=== PATIENT | male | born 1965 | race Caucasian/White ===

== ENCOUNTER 2016-11-19 16:28 | Inpatient (IN) | payer MEDICARE, MEDICAID ==
--- NOTE | 2016-11-19 16:54 | EDPRACDOC ---
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 Mode Of Arrival: Ambulance Home Medications: Home Medications Acetaminophen [Mapap] 650 mg PO BID 11/16/16 Benztropine Mesylate 0.5 mg PO TID 11/16/16 Cholecalciferol (Vitamin D3) [Vitamin D3] 1,000 unit PO DAILY 11/16/16 Escitalopram Oxalate [Lexapro] 10 mg PO .QPM 11/16/16 Hypromellose [Artificial Tears] 1 drop OU QID 11/16/16 Ibuprofen Tablet [Motrin] 800 mg PO Q8H PRN 11/16/16 Latanoprost 1 drop OU QHS 11/16/16 Levothyroxine [Synthroid, Levoxyl] 25 mcg PO DAILY 11/16/16 Lorazepam [Ativan] 0.5 mg PO Q8H PRN 11/16/16 Multivits,Ca,Minerals/Iron/FA [Thera-Tabs M Caplet] 1 tab PO DAILY 11/16/16 Olanzapine [Zyprexa] 5 mg PO BID 11/16/16 Pantoprazole Sodium [Protonix] 40 mg PO DAILY 11/16/16 Sodium Fluoride [Phos-Flur] 15 ml MM DAILY 11/16/16 Albuterol Sulfate MDI [Proventil HFA] 2 puff PO Q4H PRN 11/19/16 Ammonium Lactate [Lac-Hydrin] 2 gm TOP BID 11/19/16 Azithromycin 250 mg PO .DAILY X 4D 11/19/16 Biotene Toothpaste 1 applic PO BID 11/19/16 [place] Thick 1 sam PO .ADD TO ALL LIQUIDS 11/19/16 Allergies/Adverse Reactions: Allergies Allergy/AdvReac Type Severity Reaction Status Date / Time No Known Allergies Allergy Unverified 11/16/16 20:54 - History of Present Illness HPI: SOB FOR 2-3 DAYS, DIAGNOSED WITH PNA IN ER 11/16, ON ABX-AZITHROMYCIN. CHEST PAIN 10. VERY ANXIOUS. CONCERNED ABOUT GOING HOME FEELING THE WAY HE DOES. Shortness of Breath: Moderate ED Past Medical History - Patient Medical History Psychological History: Denies: Depression - Social Medical History Smoking Status: Never smoker EDM Review of Systems - Review of Systems ROS Negative Except as Marked: Yes All systems reviewed and were negative except as marked Eyes: No Symptoms Reported Ears: No Symptoms Reported Throat: No Symptoms Reported - Physical Exam Constitutional: Alert (Awake) Oriented to: Time, Person, Place Last recorded Vital Signs: Oxygen Pulse Oxygen Saturation O2 Device Oxygen Flow Rate Fraction of Inspired Oxygen ( FIO2) - HEENT Head: Normal ( normocephalic) Eye Exam: Normal (PERRL, EOMI, Sclera white) Oropharynx: Normal (Pharynx:Moist without exudate,Gums-no swelling) Nose: No Symptoms Reported (septum midline) Neck: Normal (FROM, trachea at midline) - Respiratory/Cardiovascular Respiratory: Tachypnea Cardiovascular: Normal - GI Auscultation: Normal (NABS) Palpation: Normal (Soft,No rebound or guarding, non distended) Tenderness: Non tender Merino's Sign: Negative - Musculoskeletal Back: Normal (Non-Tender) Extremities: Normal (Normal tone, Pulses 2+ No cyanosis or edema, FROM) - Integumentary Skin: Normal, Warm, Dry Lymphatics: Normal (no adenopathy) - Neurologic Memory Impaired: Normal Motor Function: Normal (Normal tone, Pulses 2+ No cyanosis or edema, FROM) Cranial Nerve: Normal (CN II-X11 intact sensation, strength 5/5) Cerebellar: Normal Mood Description: Normal Perception: Normal ED SOB MDM - Results Result Diagrams: 11/19/16 17:00 11/19/16 17:00 - EKG EKG #1 EKG Time: 22:16 -: Yes EKG interpreted by me Rate: bpm: 70 [place]: Normal Rhythm: NSR Block: None Hypertrophy: None ST: Normal Comments: NORMAL EKG - Departure Yes I personally saw and evaluated the patient. Disposition: Admit IP To This Hospital Condition: Stable Final Diagnosis: Bilateral pneumonia Qualifiers: Pneumonia type: due to unspecified organism Lung location: lower lobe of lung Qualified Code(s): J18.9 - Pneumonia, unspecified organism Decision to Admit Time: 22:07 Decision to admit date: 11/19/16 Decision to admit: from ED - Physician Consulted Hospitalist Time Called: 22:07 Provider Called: Nael Fan Time Emergency Room Tech Returned Call: 22:08
--- NOTE | 2016-11-19 17:07 | DIRPT ---
CLINICAL DATA: Dyspnea and cough with substernal chest pain/ pressure 3 days. EXAM: CHEST 2 VIEW COMPARISON: 11/16/2016 as well as chest CT 11/16/2016 FINDINGS: Lungs are somewhat hypoinflated demonstrate worsening patchy bilateral perihilar and bibasilar opacification which may be due to edema versus infection. Small bilateral pleural effusions. Mild stable cardiomegaly. Remainder of the exam is unchanged. IMPRESSION: Worsening bilateral patchy perihilar and bibasilar or airspace opacification which may be due to infection or edema. Small bilateral pleural effusions. Electronically Signed By: Leonel Go M.D. On: 11/19/2016 17:04
[2016-11-19 18:08] LABS: AUTOMATED BASOPHIL 0.8 % (0-2); AUTOMATED EOSINOPHIL 1.9 % (0-5); AUTOMATED LYMPH 18.2 % (17-44); AUTOMATED MONOCYTE 5.9 % (3-10); AUTOMATED NEUTROPHIL 73.2 % (45-76); MPV 8.6 fL (7.4-10.4)
[2016-11-19 18:20] LABS: BLOOD UREA NITROGEN 16 MG/DL (9-20); CALC CORRECTED 8.7 MG/DL (8.4-10.2); CALCIUM 8.3 MG/DL (8.4-10.2); CALCULATED OSMOLALITY 283 MOs/Kg (270-290); CHLORIDE 107 mEq/L (98-107); GLUCOSE 108 MG/DL (70-99); SODIUM LEVEL 146 mEq/L (137-146); TOTAL PROTEIN 6.4 G/DL (6.3-8.2)
[2016-11-19] MEDS ORDERED: ALBUTEROL 0.083% 3 ML NEB NEB ONE (21:56)
[2016-11-19] MEDS ORDERED: [UNRECOGNIZED DRUG - OTHER] PO SCH (22:00)
[2016-11-19] MEDS ORDERED: [UNRECOGNIZED DRUG - OTHER] PO SCH (22:00)
[2016-11-19] MEDS ORDERED: AMMONIUM LACTATE TOP SCH (22:00)
[2016-11-19] MEDS ORDERED: BENZTROPINE MESYLATE 0.5 MG PO SCH (22:00)
[2016-11-19] MEDS ORDERED: HYPROMELLOSE OU SCH (22:00)
[2016-11-19 22:12] LABS: ALLEN'S TEST PASS; BEb 1.4 (+/- 2)
[2016-11-19 22:13] LABS: ABG Draw Site Right Radial
[2016-11-19] MEDS: LORAZEPAM 0.5 MG TAB PO PRN (22:27)
[2016-11-19] MEDS ORDERED: NS 1,000 ML IV ONE (22:35)
[2016-11-19] MEDS ORDERED: Levofloxacin 750 mg/150 ml D5W 750 MG/150 ML RTU IV ONE (22:35)
--- NOTE | 2016-11-19 22:53 | HISTPHYS ---
- Chief Complaint shortness of breath, on azithromycin - History of Present Illness PRIMARY CARE PROVIDER: Dr. Aceves HPI: The patient is a 51 yo man who presents with pneumonia diagnosed several days ago who has had more shortness of breath, worse today. Chest pain also, started a few days ago, associated with anxiety. He presented to the emergency department 3 days ago, was diagnosed with probable pneumonia, and was discharged on PO azithromycin. Regarding the shortness of breath and chest pain : Onset: Shortness of breath started about 4 days ago. Chest pain started a few days ago. Duration: Shortness of breath constantly present and progressively worsening. Location: Substernal. Radiation: none. Character: 01/29. Like a bee sting. Alleviated by: Nothing. Exacerbated by: Nothing. Associated Symptoms: Coughing productive of white sputum. Wheezing. Mild chills but no fever. Chest pain happens when he gets an anxiety attack. Palpitations with anxiety. Chronic lower extremity swelling is unchanged. Treatments: none at home except usual medications. 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 SPINE TUMOR: 07/2016: Extensive tumor extending from the conus medullaris at T12-L1, filling the spinal canal to the L5 level. Solid enhancing tumor predominates, with cystic change from T12-L1 to L1-L2. 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 Denies: Depression Tumor on spine found 07/2016. Followed by Dr. Willoughby. Referred to surgeon for evaluation. 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 11/16/16 CRR Current Medication List: Reviewed Home Medications Acetaminophen [Mapap] 650 mg PO BID 11/16/16 Benztropine Mesylate 0.5 mg PO TID 11/16/16 Cholecalciferol (Vitamin D3) [Vitamin D3] 1,000 unit PO DAILY 11/16/16 Escitalopram Oxalate [Lexapro] 10 mg PO .QPM 11/16/16 Hypromellose [Artificial Tears] 1 drop OU QID 11/16/16 Ibuprofen Tablet [Motrin] 800 mg PO Q8H PRN 11/16/16 Latanoprost 1 drop OU QHS 11/16/16 Levothyroxine [Synthroid, Levoxyl] 25 mcg PO DAILY 11/16/16 Lorazepam [Ativan] 0.5 mg PO Q8H PRN 11/16/16 Multivits,Ca,Minerals/Iron/FA [Thera-Tabs M Caplet] 1 tab PO DAILY 11/16/16 Olanzapine [Zyprexa] 5 mg PO BID 11/16/16 Pantoprazole Sodium [Protonix] 40 mg PO DAILY 11/16/16 Sodium Fluoride [Phos-Flur] 15 ml MM DAILY 11/16/16 Albuterol Sulfate MDI [Proventil HFA] 2 puff PO Q4H PRN 11/19/16 Ammonium Lactate [Lac-Hydrin] 2 gm TOP BID 11/19/16 Azithromycin 250 mg PO .DAILY X 4D 11/19/16 Biotene Toothpaste 1 applic PO BID 11/19/16 [place] Thick 1 sam PO .ADD TO ALL LIQUIDS 11/19/16 - Family History Reports: Other (Patient does not know) - Social History Lives: [place] [facility] since [facility]) Smoking Status: Never smoker Social History: Denies: Alcohol Use, Substance Use Disorder Mother's name is Desi Torres, . - Review of Systems GENERAL: Mild chills but no fever. No diaphoresis. Positive for fatigue/ malaise. HEENT: No ear pain or discharge. No nasal discharge or bleeding. No throat pain or swelling. No eye pain or eye redness. RESPIRATORY: Coughing productive of white sputum. Wheezing and shortness of breath. CARDIOVASCULAR: Chest pain happens when he gets an anxiety attack. Palpitations with anxiety. GI: No abdominal pain, nausea, vomiting, diarrhea, constipation, or bloody stool. NEUROLOGICAL: No headache or focal weakness. INTEGUMENT: no rashes, itching, or lesions. LYMPHATIC SYSTEM: no lymph node swelling or pain. MUSCULOSKELETAL: no new pain or joint swelling. GENITOURINARY: No dysuria or hematuria. ENDOCRINE: No polyuria or polydipsia. HEME: No chronic anemia, bleeding, or easy bruising. - Physical Exam Vital Signs: Initial Vitals Temperature 98.5 F 11/19/16 16:39 Pulse Rate 76 11/19/16 16:39 Respiratory Rate 22 11/19/16 16:39 Blood Pressure 135/63 11/19/16 16:39 Pulse Oxygen Saturation 95 11/19/16 16:39 Weight: 78.4 kg Height: 5' BMI: 33.8 - Other Exam Other Exam Findings: GENERAL: Ill-appearing, well nourished, in acute distress. HEENT: Normocephalic, atraumatic; pupils equal and round. Nares patent, without discharge or bleeding. No oropharyngeal lesions or erythema. Mucous membranes are dry. NECK: is supple, no masses, trachea midline. RESPIRATORY: Clear to auscultation bilaterally. Chest wall movements are symmetric. No use of accessory muscles to breathe. Bilateral wheezing. Bilateral rhonchi. No rales. CARDIOVASCULAR: Normal S1, S2. No murmur. No rubs, or gallops. PMI non- displaced. Carotids: no carotid bruits. No bradycardia or tachycardia. DP pulses 2+ bilaterally. GI: soft, non-distended, normal active bowel sounds. No hepatosplenomegaly. Minimal generalized abdominal tenderness. INTEGUMENT: Clean, dry, and intact. No rashes. MUSCULOSKELETAL: No cyanosis. No clubbing. Edema 1+ lower extremities bilaterally. NEUROLOGICAL: Cranial nerves 2-12 grossly intact. Motor 5/5 throughout. Reflexes : 2+ bilaterally. Babinski: toes downgoing bilaterally. Intact Finger to nose. Sensory grossly intact to light touch. Intact rapid alternating movements bilaterally. No pronator drift. PSYCHIATRIC: Fully oriented. Normal and appropriate affect. LYMPHATIC: No cervical lymphadenopathy. No supraclavicular lymphadenopathy. - Lab Results Laboratory Tests 11/19/16 11/19/16 11/19/16 17:00 17:00 17:00 WBC 8.9 RBC 3.24 L Hgb 10.0 L Hct 29.3 L MCV 91 MCH 30.8 MCHC 33.9 RDW 16.1 H Plt Count 254 MPV 8.6 Neut % (Auto) 73.2 Lymph % (Auto) 18.2 [place] % (Auto) 5.9 Eos % (Auto) 1.9 Baso % (Auto) 0.8 Absolute Neuts (auto) 6.50 Absolute Lymphs (auto) 1.60 Puncture Site pH pCO2 pO2 HCO3 Total CO2 Base Excess FiO2 % Specimen Drawn By Sodium 146 Potassium 3.5 Chloride 107 Carbon Dioxide 27 Anion Gap 16 BUN 16 Creatinine 0.80 Estimated GFR (MDRD) > 60 Glucose 108 H Calculated Osmolality 283 Calcium 8.3 L Corrected Calcium 8.7 Total Bilirubin 0.5 AST 23 ALT 42 Alkaline Phosphatase 78 Troponin I < 0.01 [id number] Pept Total Protein 6.4 Albumin 3.6 11/19/16 11/19/16 17:00 22:05 WBC RBC Hgb Hct MCV MCH MCHC RDW Plt Count MPV Neut % (Auto) Lymph % (Auto) [place] % (Auto) Eos % (Auto) Baso % (Auto) Absolute Neuts (auto) Absolute Lymphs (auto) Puncture Site Right radial pH 7.460 H pCO2 35.0 pO2 73.0 L HCO3 24.9 Total CO2 26.0 Base Excess 1.4 FiO2 % .21 Specimen Drawn By Robcha Sodium Potassium Chloride Carbon Dioxide Anion Gap BUN Creatinine Estimated GFR (MDRD) Glucose Calculated Osmolality Calcium Corrected Calcium Total Bilirubin AST ALT Alkaline Phosphatase Troponin I Obt-T-Qwhywyfkgce Pept 248 Total Protein Albumin - Diagnostic Findings EK beats per minute. Normal sinus rhythm. Reviewed EKG personally. Chest x-ray, viewed personally: EXAM: CHEST 2 VIEW COMPARISON: 11/16/2016 as well as chest CT 11/16/2016 FINDINGS: Lungs are somewhat hypoinflated demonstrate worsening patchy bilateral perihilar and bibasilar opacification which may be due to edema versus infection. Small bilateral pleural effusions. Mild stable cardiomegaly. Remainder of the exam is unchanged. IMPRESSION: Worsening bilateral patchy perihilar and bibasilar or airspace opacification which may be due to infection or edema. Small bilateral pleural effusions. PREVIOUS IMAGING: CTA CHEST, 11/16/16: EXAM: CT ANGIOGRAPHY CHEST WITH CONTRAST TECHNIQUE: Multidetector CT imaging of the chest was performed using the standard protocol during bolus administration of intravenous contrast. Multiplanar CT image reconstructions and MIPs were obtained to evaluate the vascular anatomy. CONTRAST: 90 cc Isovue 370 COMPARISON: Chest radiograph dated 11/16/2016 FINDINGS: There are small bilateral pleural effusions with associated partial compressive atelectasis of the lower lobes. There is diffuse interstitial prominence with diffuse ground-glass airspace opacities most compatible with congestive changes or edema. Superimposed pneumonia is not excluded. Amount of fluid is noted within the fissures bilaterally. There is a 1.2 x 1.6 cm density along the right major fissure likely with a focal fluid collection. Underlying mass is less likely but not excluded. Clinical correlation and follow-up recommended. The central airways are patent. Top-normal cardiac size. No pericardial effusion. Top-normal bilateral hilar lymph nodes. The thoracic aorta appears unremarkable. Evaluation of the pulmonary arteries is limited due to suboptimal opacification of the peripheral branches. No central pulmonary artery embolus identified. The visualized esophagus and thyroid gland appear grossly unremarkable. There is no axillary adenopathy. The chest wall soft tissues appear grossly unremarkable. The osseous structures are intact. There is retrograde flow of contrast from the right atrium into the IVC compatible with a degree of right heart failure. Correlation with echocardiogram recommended. The visualized upper abdomen is otherwise unremarkable. Review of the MIP images confirms the above findings. IMPRESSION: No CT evidence of central pulmonary embolism. Small bilateral pleural effusions with findings could congestive changes. Superimposed pneumonia is not excluded. Clinical correlation and follow-up recommended. MRI C-SPINE and T-SPINE, 08/25/16: Exam(s): [id number] MRI/MRI CERVICAL SPINE W/O CM CLINICAL DATA: Ependymoma. EXAM: MRI CERVICAL SPINE WITHOUT CONTRAST; MRI THORACIC SPINE WITHOUT CONTRAST TECHNIQUE: Multiplanar and multiecho pulse sequences of the cervical and thoracic spine were obtained without intravenous contrast. COMPARISON: None FINDINGS: Postcontrast imaging could not be obtained. The patient presented for post infused imaging 4 times, each time declining injection. Cervical spine: No marrow signal abnormality suggestive of fracture, infection, or neoplasm. Congenital C2-3 non segmentation. Normal cord signal. Degenerative changes superimposed on congenitally stenotic spinal canal: C2-3: Non segmentation without superimposed degenerative change. No impingement. C3-4: Congenital canal stenosis with small posterior disc osteophyte complex and ligamentous thickening. Spinal canal stenosis is moderate, with complete effacement of CSF but no cord compression on sagittal imaging. Bilateral moderate foraminal stenosis from uncovertebral spurs. C4-5: Congenital canal stenosis with superimposed ligamentous thickening and disc bulging causing mild cord flattening. No cord edema. Right uncovertebral spurring with advanced foraminal stenosis. C5-6: Focal degenerative disc change with narrowing and marrow signal alteration and endplate irregularity. Posterior disc osteophyte complex causes cord compression when superimposed on congenital narrowing. Bilateral foraminal stenosis with impingement greater on the right. C6-7: Uncovertebral spurs with right foraminal stenosis that is moderate to advanced. Moderate spinal canal stenosis with circumferential effacement of CSF. Thoracic spine: Discordant numbering when counting from above, with the upper margin of cystic change at the T11-12 level rather than the T12-L1 level. This gives the appearance of 4 lumbar type vertebral bodies. At least 5 cm opacity in the posterior right chest with evidence of internal cystic change. Motion degraded study, especially axial imaging. Known cystic change in the distal cord with intradural tumor infiltrating the conus and extending inferiorly. No previously nonvisualized areas of cystic change or hydromyelia. No prominent vessels by noncontrast technique. Diffuse spondylosis with disc narrowing and endplate spurring. No high-grade stenosis. These results will be called to the ordering clinician or quality audit representative by the Radiologist Office Clerk, and communication documented in the PACS or [employer] Dashboard. IMPRESSION: 1. Limited study as postcontrast imaging could not be obtained despite 4 separate attempts. Obtained imaging is motion degraded. 2. Spinal numbering discordant from lumbar spine study 08/19/2016. When numbered from above and accounting for C2-3 non segmentation, there are 4 lumbar type vertebral bodies. Consider radiographic correlation for operative planning. 3. At least 5 cm opacity in the right lung with suspected internal cystic change. This could reflect a cavitary pneumonia or bronchogenic neoplasm. Chest CT with contrast is recommended. 4. Known conus mass with lower cord cystic change. No previously nonvisualized findings in the cord. 5. Cervical canal stenosis from C3-4 to C6-7, congenital and degenerative. Canal stenosis and cord compression is greatest at C4-5. 6. Multilevel cervical foraminal stenosis, as noted above. MRI L-SPINE 08/19/16: Exam(s): [id number] MRI/MRI LUMBAR SPINE W/ CM CLINICAL DATA: 50-year-old male with lumbar back pain radiating to the right lower extremity. Abnormal conus medullaris and lumbar spinal canal for post-contrast evaluation. Initial encounter. EXAM: MRI LUMBAR SPINE WITH CONTRAST CONTRAST: 17 mL MultiHance COMPARISON: Noncontrast lumbar MRI 08/17/2016. FINDINGS: Same numbering system as on the recent noncontrast comparison. No abnormal enhancement of the lower thoracic spinal cord above T12-L1. Beginning at the T12-L1 level there is cystic change within the conus which extends distally. There is minimal rim enhancement associated beginning at the level of the L1 superior endplate (series 2, image 8). There is confluent enhancing tumor then nearly filling the spinal canal from the superior L2 level extending about 9 cm distally to L4-L5. Below that there is patchy enhancement within the lower cauda equina (series 2, image 8). Abnormal marrow edema and enhancement persists about the L2-L3 level affecting the endplates and central vertebral bodies. There is intervening disc degeneration and mild disc enhancement. No paraspinal inflammation or enhancement. No other abnormal osseous enhancement identified elsewhere. Stable visualized abdominal viscera. IMPRESSION: 1. Extensive tumor extending from the conus medullaris at T12-L1, filling the spinal canal to the L5 level. Solid enhancing tumor predominates, with cystic change from T12-L1 to L1-L2. 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 2. Continued signal abnormality in the L2 and L3 vertebral bodies an intervening disc favored to be degenerative in nature. MRI BRAIN 08/19/16: Exam(s): [id number] MRI/MRI HEAD WITH WITHOUT CM CLINICAL DATA: Lumbar spine lesion. 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 CONTRAST: 17 mL MultiHance COMPARISON: MRI of the lumbar spine without contrast 08/17/2016 and MRI of the lumbar spine with contrast 08/19/2016 FINDINGS: No acute infarct, hemorrhage, or mass lesion is present. No significant white matter disease is present. The basal ganglia are intact. No significant extraaxial fluid collection is present. Flow is present in the major intracranial arteries. The internal auditory canals and brainstem are within normal limits. The globes and orbits are intact. The paranasal sinuses are clear. Minimal fluid is present in the mastoid air cells bilaterally. No obstructing nasopharyngeal lesion is evident. The postcontrast images demonstrate no pathologic enhancement. A congenital fusion is evident at C2-3. Midline images are otherwise unremarkable. IMPRESSION: 1. Normal MRI appearance of the brain. No evidence for intracranial neoplastic disease. 2. 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 - Assessment (1) Bacterial pneumonia J15.9 - UNSPECIFIED BACTERIAL PNEUMONIA Acute Present on Admission: Yes Failed outpatient management. Pneumonia. Severe. Requiring continuous oxygen support. Type: Community acquired pneumonia. Criteria for diagnosis: Chest x-ray suggestive of pneumonia, rhonchi on physical exam. Likely bacterial. Plan: Sputum culture has been ordered. Treat with IV Levaquin. Monitor oxygen saturation levels. (2) Hypoxia R09.02 - HYPOXEMIA Acute Present on Admission: Yes O2 by NC prn (3) Pleural effusion J90 - PLEURAL EFFUSION, NOT ELSEWHERE CLASSIFIED Acute Present on Admission: Yes Bilateral small pleural effusions. Plan: Monitor for any fluid overload. Oxygen support. (4) Anxiety F41.9 - ANXIETY DISORDER, UNSPECIFIED Acute Present on Admission: Yes Patient reports intermittent panic attacks that result in chest pain. Plan: Continue home meds. PRN ativan. 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 Apparently had surgery. No records available at this time. Plan: Obtain records. (6) Dysphagia R13.10 - DYSPHAGIA, UNSPECIFIED Chronic Present on Admission: Yes Per patient he requires thickened liquids. Plan: Continue home regimen. Case Care Discussed with: Patient, Nursing Staff
[2016-11-19] MEDS ORDERED: LATANOPROST 0.005% OPHTH SOLN 2.5 ML OU SCH (23:00)
[2016-11-19] MEDS ORDERED: ARTIFICIAL TEARS OPH SOLN 15 ML OU SCH (23:00)
[2016-11-19] MEDS: BENZTROPINE MESYLATE 1 MG TAB PO SCH (23:04)
[2016-11-19] MEDS: ESCITALOPRAM OXALATE 10 MG TAB PO SCH (23:04)
[2016-11-19] MEDS: OLANZAPINE 5 MG TAB PO SCH (23:04)
[2016-11-19] MEDS: LATANOPROST 0.005% OPHTH SOLN 2.5 ML OU SCH (23:05)
[2016-11-19] MEDS: ARTIFICIAL TEARS OPH SOLN 15 ML OU SCH (23:24)
[2016-11-19] MEDS ORDERED: ACETAMINOPHEN 325 MG/TAB TABLET PO ONE (23:34)
[2016-11-19] MEDS: ACETAMINOPHEN 325 MG/TAB TABLET PO SCH (23:35)
[2016-11-20] MEDS ORDERED: ONDANSETRON HCL 4 MG/2 ML VIAL IV PRN (00:45)
[2016-11-20] MEDS ORDERED: Aluminum;Magnesium;Simethicone 30 ML UDC PO PRN (00:45)
[2016-11-20] MEDS ORDERED: BISACODYL 5 MG TAB PO PRN (00:45)
[2016-11-20] MEDS ORDERED: SENNA CONCENTRATE TAB PO PRN (00:45)
[2016-11-20] MEDS ORDERED: PROMETHAZINE 25 MG/ML VIAL IV PRN (00:45)
[2016-11-20] MEDS ORDERED: SIMETHICONE 80 MG TAB PO PRN (00:45)
[2016-11-20] MEDS ORDERED: BENZONATATE 100 MG PERLES PO PRN (00:45)
[2016-11-20] MEDS ORDERED: ACETAMINOPHEN 325 MG SUPP PR PRN (00:45)
[2016-11-20] MEDS ORDERED: Docusate Sodium 100 MG CAP PO PRN (00:45)
[2016-11-20] MEDS ORDERED: ALBUTEROL 0.083% 3 ML NEB NEB PRN (00:45)
[2016-11-20] MEDS ORDERED: GUAIFEN 100 MG-DEXTROMETH 10 MG PER 5 ML PO PRN (00:45)
[2016-11-20] MEDS: IBUPROFEN 800 MG TAB PO PRN (01:14)
[2016-11-20] MEDS: TEMAZEPAM 15 MG CAP PO PRN ×2 (01:18→03:18)
[2016-11-20] MEDS: ALBUTEROL 0.083% 3 ML NEB NEB SCH ×4 (02:06→19:40)
[2016-11-20] MEDS: ENOXAPARIN 40 MG/0.4 ML PFS SQ SCH ×2 (03:18→22:20)
[2016-11-20 03:23] LABS: MPV 8.3 fL (7.4-10.4)
[2016-11-20 03:35] LABS: BLOOD UREA NITROGEN 15 MG/DL (9-20); CALCIUM 8.5 MG/DL (8.4-10.2); CALCULATED OSMOLALITY 283 MOs/Kg (270-290); CHLORIDE 108 mEq/L (98-107); GLUCOSE 115 MG/DL (70-99); SODIUM LEVEL 146 mEq/L (137-146)
[2016-11-20] MEDS: BENZTROPINE MESYLATE 1 MG TAB PO SCH ×3 (05:49→21:32)
[2016-11-20] MEDS: PANTOPRAZOLE 40 MG TAB PO SCH (05:50)
[2016-11-20] MEDS ORDERED: LAC HYDRIN 12% TOP SCH (07:00)
[2016-11-20] MEDS ORDERED: [UNRECOGNIZED DRUG - OTHER] PO SCH (09:00)
[2016-11-20] MEDS ORDERED: MULTIVITS CA MINERALS PO SCH (09:00)
[2016-11-20] MEDS ORDERED: AZITHROMYCIN 250 MG TAB PO SCH (09:00)
[2016-11-20] MEDS ORDERED: Non-Formulary Medication ITEM (Cholecalciferol (Vitamin D3) [Vitamin D3] 1,000 UNIT) PO SCH (09:00)
[2016-11-20] MEDS ORDERED: IRON PO SCH (09:00)
[2016-11-20] MEDS: LAC HYDRIN 12% TOP SCH ×2 (10:37→22:20)
[2016-11-20] MEDS: LEVOTHYROXINE 25 MCG (0.025 MG) TAB PO SCH (10:37)
[2016-11-20] MEDS: ACETAMINOPHEN 325 MG/TAB TABLET PO SCH ×3 (10:38→21:32)
[2016-11-20] MEDS: OLANZAPINE 5 MG TAB PO SCH ×2 (10:38→21:33)
[2016-11-20] MEDS: LORAZEPAM 0.5 MG TAB PO PRN (11:30)
[2016-11-20] MEDS: CHOLECALCIFEROL 1000 UNITS TAB PO SCH (11:32)
[2016-11-20] MEDS: VITS,MINERALS,IRON TAB PO SCH (11:37)
[2016-11-20] MEDS ORDERED: Vaccine Screening Complete SCH (12:00)
[2016-11-20] MEDS: ARTIFICIAL TEARS OPH SOLN 15 ML OU SCH ×3 (16:14→22:28)
--- NOTE | 2016-11-20 16:20 | GENMEDPROG ---
Chief Complaint: Very anxious and restless at times. Vitals appear to be stabilizing. Still moderate shortness of breath and congestion. Notes Reviewed: Yes Events from last night noted and discussed with Clinical Staff Current Medication List: Reviewed Currently: Reports: Cough, Wheezing, KAM, SOB. Denies: Nausea and Vomiting, Abdominal Pain, Chest Pain - Physical Examination Vital Signs and I&O: Last Vital Signs Temp 98.6 F 11/20/16 11:38 Pulse 82 11/20/16 14:30 Resp 20 11/20/16 11:38 BP 117/63 11/20/16 11:38 Pulse Ox 96 11/20/16 11:38 Oxygen Pulse Oxygen Saturation 96 O2 Device Nasal Cannula Oxygen Flow Rate 2 Fraction of Inspired Oxygen ( FIO2) Intake & Output 11/17/16 11/18/16 11/19/16 11/20/16 23:59 23:59 23:59 23:59 Intake Total 600 Balance 600 Patient's weight 85.389 kg General: Alert, Oriented x3, Cooperative, Moderate distress. negative: Well appearing (Acutely ill-appearing) HEENT: Normal, PERRLA, EOMI, Anicteric Sclera Neck: Non-tender, Full range of motion, Normal Trachea alignment, Normal inspection. negative: JVD Lymphatics: Normal (no adenopathy). negative: Adenopathy Respiratory: Diminished, Rales, Rhonchi, Tachypnea Cardiovascular: Regular rate and rhythm, No Gallops,Rubs/Murmurs GI: Normal bowel sounds, Soft, Non tender, No hepatospenomegaly, No masses Extremities/Musculoskeletal: Normal pulses. negative: Tenderness, Swelling, Edema Skin: Warm,Dry and Intact, No rashes, No breakdown, No significant lesion Neurological: Normal Steady Gait, Normal speech, Strength at 5/5 X4 ext, Normal tone, Cranial nerves 3-12 NL Psych/Mental Status: Appropriate, Normal Affect, Cooperative Lab/DI/Studies Reviewed: Laboratory Results - last 24 hr 11/19/16 11/19/16 11/19/16 17:00 17:00 17:00 WBC 8.9 RBC 3.24 L Hgb 10.0 L Hct 29.3 L MCV 91 MCH 30.8 MCHC 33.9 RDW 16.1 H Plt Count 254 MPV 8.6 Neut % (Auto) 73.2 Lymph % (Auto) 18.2 Jack % (Auto) 5.9 Eos % (Auto) 1.9 Baso % (Auto) 0.8 Absolute Neuts (auto) 6.50 Absolute Lymphs (auto) 1.60 Puncture Site pH pCO2 pO2 HCO3 Total CO2 Base Excess FiO2 % Specimen Drawn By Sodium 146 Potassium 3.5 Chloride 107 Carbon Dioxide 27 Anion Gap 16 BUN 16 Creatinine 0.80 Estimated GFR (MDRD) > 60 Glucose 108 H Calculated Osmolality 283 Calcium 8.3 L Corrected Calcium 8.7 Total Bilirubin 0.5 AST 23 ALT 42 Alkaline Phosphatase 78 Troponin I < 0.01 Sbf-W-Lgwgtvoacip Pept Total Protein 6.4 Albumin 3.6 11/19/16 11/19/16 11/20/16 17:00 22:05 02:55 WBC RBC Hgb Hct MCV MCH MCHC RDW Plt Count MPV Neut % (Auto) Lymph % (Auto) Jack % (Auto) Eos % (Auto) Baso % (Auto) Absolute Neuts (auto) Absolute Lymphs (auto) Puncture Site Right radial pH 7.460 H pCO2 35.0 pO2 73.0 L HCO3 24.9 Total CO2 26.0 Base Excess 1.4 FiO2 % .21 Specimen Drawn By Robcha Sodium 146 Potassium 3.1 L Chloride 108 H Carbon Dioxide 28 Anion Gap 13 BUN 15 Creatinine 0.70 Estimated GFR (MDRD) > 60 Glucose 115 H Calculated Osmolality 283 Calcium 8.5 Corrected Calcium Total Bilirubin AST ALT Alkaline Phosphatase Troponin I Suz-H-Hyepoqvvlss Pept 248 Total Protein Albumin 11/20/16 02:55 WBC 8.1 RBC 3.15 L Hgb 9.6 L Hct 28.4 L MCV 90 MCH 30.5 MCHC 33.8 RDW 15.9 H Plt Count 243 MPV 8.3 Neut % (Auto) Lymph % (Auto) Jack % (Auto) Eos % (Auto) Baso % (Auto) Absolute Neuts (auto) Absolute Lymphs (auto) Puncture Site pH pCO2 pO2 HCO3 Total CO2 Base Excess FiO2 % Specimen Drawn By Sodium Potassium Chloride Carbon Dioxide Anion Gap BUN Creatinine Estimated GFR (MDRD) Glucose Calculated Osmolality Calcium Corrected Calcium Total Bilirubin AST ALT Alkaline Phosphatase Troponin I Xzx-N-Rdbbgsitene Pept Total Protein Albumin - Assessment (1) Cellulitis Acute L03.90 - CELLULITIS, UNSPECIFIED Qualifiers: Site of cellulitis: extremity Site of cellulitis of extremity: lower extremity Laterality: right Qualified Code(s): L03.115 - Cellulitis of right lower limb Comment/Plan: Very mild. Continue antibiotics and supportive care. (2) Anxiety Acute F41.9 - ANXIETY DISORDER, UNSPECIFIED Comment/Plan: Significant restlessness, anxiety and agitation. Continue p.r.n. Ativan. (3) Bacterial pneumonia Acute J15.9 - UNSPECIFIED BACTERIAL PNEUMONIA Comment/Plan: IV antibiotics and pulmonary toilet. Currently resting comfortably on 2 L. Encourage cough and spirometry and activity as tolerated. (4) Dysphagia Chronic R13.10 - DYSPHAGIA, UNSPECIFIED Qualifiers: Dysphagia type: unspecified Qualified Code(s): R13.10 - Dysphagia, unspecified Comment/Plan: Continue thickened liquids and home regimen. 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 Left message for mother to contact me. Case Care Discussed with: Patient, Family (Attempted to reach family. Called 2 separate numbers to get in touch with mother Desi. [phone] and [phone]. Left message), Nursing Staff
[2016-11-20] MEDS: ESCITALOPRAM OXALATE 10 MG TAB PO SCH (16:24)
[2016-11-20] MEDS: NS/KCl 20 mEq 1,000 ML IV SCH (18:05)
[2016-11-20] MEDS ORDERED: ARTIFICIAL TEARS OPH SOLN 15 ML OU SCH (22:00)
[2016-11-20] MEDS ORDERED: LATANOPROST 0.005% OPHTH SOLN 2.5 ML OU SCH (22:00)
[2016-11-20] MEDS: LATANOPROST 0.005% OPHTH SOLN 2.5 ML OU SCH (22:18)
[2016-11-20] MEDS: Levofloxacin 750 mg/150 ml D5W 750 MG/150 ML RTU IV SCH (22:59)
[2016-11-21] MEDS: IBUPROFEN 800 MG TAB PO PRN (01:17)
[2016-11-21] MEDS: TEMAZEPAM 15 MG CAP PO PRN (01:17)
[2016-11-21] MEDS: ALBUTEROL 0.083% 3 ML NEB NEB SCH ×4 (01:50→21:29)
[2016-11-21] MEDS: LORAZEPAM 0.5 MG TAB PO PRN ×2 (02:15→13:16)
[2016-11-21 05:02] LABS: AUTOMATED EOSINOPHIL 2.9 % (0-5); AUTOMATED LYMPH 25.3 % (17-44); AUTOMATED MONOCYTE 8.7 % (3-10); AUTOMATED NEUTROPHIL 62.1 % (45-76); MPV 8.8 fL (7.4-10.4)
[2016-11-21] MEDS: PANTOPRAZOLE 40 MG TAB PO SCH (05:03)
[2016-11-21] MEDS: NS/KCl 20 mEq 1,000 ML IV SCH ×3 (05:04→17:16)
[2016-11-21] MEDS: BENZTROPINE MESYLATE 1 MG TAB PO SCH ×3 (05:04→22:08)
[2016-11-21 05:09] LABS: BLOOD UREA NITROGEN 14 MG/DL (9-20); CALCIUM 8.4 MG/DL (8.4-10.2); CALCULATED OSMOLALITY 280 MOs/Kg (270-290); CHLORIDE 107 mEq/L (98-107); GLUCOSE 102 MG/DL (70-99); SODIUM LEVEL 145 mEq/L (137-146)
[2016-11-21] MEDS: OLANZAPINE 5 MG TAB PO SCH ×2 (07:32→22:14)
[2016-11-21] MEDS: ACETAMINOPHEN 325 MG/TAB TABLET PO SCH ×2 (07:32→22:10)
[2016-11-21] MEDS: VITS,MINERALS,IRON TAB PO SCH (07:33)
[2016-11-21] MEDS: LEVOTHYROXINE 25 MCG (0.025 MG) TAB PO SCH (07:33)
[2016-11-21] MEDS: LAC HYDRIN 12% TOP SCH ×2 (07:33→22:08)
[2016-11-21] MEDS: ARTIFICIAL TEARS OPH SOLN 15 ML OU SCH ×4 (07:34→22:04)
--- NOTE | 2016-11-21 08:23 | DIRPT ---
CLINICAL DATA: Pneumonia. EXAM: PORTABLE CHEST 1 VIEW COMPARISON: November 19, 2016. FINDINGS: Stable cardiomediastinal silhouette. No pneumothorax is noted. Stable right upper and bilateral lower lobe opacities are noted concerning for pneumonia. Stable minimal bilateral pleural effusions are noted. Bony thorax is unremarkable. IMPRESSION: Stable bilateral pneumonia and minimal pleural effusions. Electronically Signed By: Will Krishnamurthy Jr, M.D. On: 11/21/2016 08:20
--- NOTE | 2016-11-21 13:45 | GENMEDPROG ---
Chief Complaint: Anxious, restless and agitated. Respiratory status appears to be improving. Awaiting records from [facility] in [place]. Notes Reviewed: Yes Events from last night noted and discussed with Clinical Staff Current Medication List: Reviewed Currently: Reports: Cough, Wheezing, KAM, SOB. Denies: Nausea and Vomiting, Abdominal Pain, Chest Pain - Physical Examination Vital Signs and I&O: Last Vital Signs Temp 98.2 F 11/21/16 11:32 Pulse 75 11/21/16 11:32 Resp 22 11/21/16 11:32 BP 117/68 11/21/16 11:32 Pulse Ox 96 11/21/16 11:32 Oxygen Pulse Oxygen Saturation 96 O2 Device Room Air Oxygen Flow Rate 2 Fraction of Inspired Oxygen ( FIO2) Intake & Output 11/18/16 11/19/16 11/20/16 11/21/16 23:59 23:59 23:59 23:59 Intake Total 1300 1209 Output Total 400 300 Balance 900 909 Patient's weight 85.389 kg General: Alert, Oriented x3, Cooperative, Moderate distress. negative: Well appearing (Acutely ill-appearing) HEENT: Normal, PERRLA, EOMI, Anicteric Sclera Neck: Non-tender, Full range of motion, Normal Trachea alignment, Normal inspection. negative: JVD Lymphatics: Normal (no adenopathy). negative: Adenopathy Respiratory: Diminished, Rales, Rhonchi, Tachypnea Cardiovascular: Regular rate and rhythm, No Gallops,Rubs/Murmurs GI: Normal bowel sounds, Soft, Non tender, No hepatospenomegaly, No masses Extremities/Musculoskeletal: Normal pulses. negative: Tenderness, Swelling, Edema Skin: Warm,Dry and Intact, No rashes, No breakdown, No significant lesion Neurological: Normal Steady Gait, Normal speech, Strength at 5/5 X4 ext, Normal tone, Cranial nerves 3-12 NL Psych/Mental Status: Appropriate, Normal Affect, Cooperative Lab/DI/Studies Reviewed: Laboratory Results - last 24 hr 11/21/16 11/21/16 04:06 04:06 WBC 6.7 RBC 3.02 L Hgb 9.3 L Hct 27.4 L MCV 91 MCH 30.7 MCHC 33.8 RDW 15.7 H Plt Count 233 MPV 8.8 Neut % (Auto) 62.1 Lymph % (Auto) 25.3 [place] % (Auto) 8.7 Eos % (Auto) 2.9 Baso % (Auto) 1.0 Absolute Neuts (auto) 4.15 Absolute Lymphs (auto) 1.68 Sodium 145 Potassium 3.4 L Chloride 107 Carbon Dioxide 29 Anion Gap 12 BUN 14 Creatinine 0.70 Estimated GFR (MDRD) > 60 Glucose 102 H Calculated Osmolality 280 Calcium 8.4 - Assessment (1) Bacterial pneumonia Acute J15.9 - UNSPECIFIED BACTERIAL PNEUMONIA Comment/Plan: Doing better. Encourage cough and spirometry. Repeatedly requests oxygen at home but doubt that he will need this. Anxiety is largest issue. (2) Cellulitis Acute L03.90 - CELLULITIS, UNSPECIFIED Qualifiers: Site of cellulitis: extremity Site of cellulitis of extremity: lower extremity Laterality: right Qualified Code(s): L03.115 - Cellulitis of right lower limb Comment/Plan: Very mild. Continue antibiotics and supportive care. (3) Anxiety Acute F41.9 - ANXIETY DISORDER, UNSPECIFIED Comment/Plan: Significant restlessness, anxiety and agitation. Continue p.r.n. Ativan. (4) Dysphagia Chronic R13.10 - DYSPHAGIA, UNSPECIFIED Qualifiers: Dysphagia type: unspecified Qualified Code(s): R13.10 - Dysphagia, unspecified Comment/Plan: Continue thickened liquids and home regimen. 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 Spoke with his mom yesterday evening. Case Care Discussed with: Patient, Nursing Staff, Physical Therapy, Resource Management, Speech Therapy, Housekeeper Child Care
[2016-11-21] MEDS: ENOXAPARIN 40 MG/0.4 ML PFS SQ SCH (16:00)
[2016-11-21] MEDS: ESCITALOPRAM OXALATE 10 MG TAB PO SCH (16:00)
--- NOTE | 2016-11-21 17:02 | CAPUECHO ---
INDICATION: CHF, EFFUSION HEIGHT: 152.4 cm (5 ft 0.0 in) WEIGHT: 85.3 kg (188.0 lbs) BP: 117/63 BSA: 1.861146 m MEASUREMENTS 2D RVIDd: 2.7 cm LVOT Diam: 1.8 cm LA Diam: 3.5 cm EF Biplane: 66.65 % LAESV MOD A4C: 29.8 ml LAESV MOD A2C: 54.2 ml LAESV Index (A-L): 24.98 ml/m M-MODE IVSd: 0.9 cm LVIDd: 4.4 cm LVPWd: 1.1 cm LVIDs: 2.9 cm EF(Teich): 63 % Ao Diam: 2.8 cm DOPPLER MV E Isra: 1.17 m/s MV A Isra: 0.56 m/s MV PHT: 43.79 ms MVA By PHT: 5.02 cm LVOT Vmax: 1.41 m/s AV Vmax: 1.52 m/s MALDONADO Vmax, Pt: 2.30 cm TR Vmax: 1.43 m/s TR maxP mmHg RVSP: 18.19 mmHg FINDINGS ------- Procedure:2D images, m-mode, color and spectral Doppler were obtained and reviewed. ECG rhythm:Sinus rhythm. Study quality:This was a technically adequate study. Left Ventricle:The left ventricular size is normal. Left ventricular wall thickness is normal. O verall left ventricular systolic function is normal with, an EF between 60 - 65 %. The diastolic f illing pattern is normal for the age of the patient. No regional wall motion abnormalities were no she. Right Ventricle:The right ventricle is normal in size and function. Left Atrium:The left atrium is normal in size. Right Atrium:The right atrium is normal in size and function. Aortic Valve:The aortic valve is trileaflet, and appears structurally normal. No aortic stenosis or regurgitation. Mitral Valve:Normal appearing mitral valve. There is trace mitral regurgitation. Tricuspid Valve:The tricuspid valve appears structurally normal. Trace tricuspid regurgitation pre sent. Pulmonic Valve:The pulmonic valve is normal. Trace/mild (physiologic) pulmonic regurgitation. Aorta:The aortic root and ascending aorta appear normal. Arch not visualized. IVC:Normal inferior vena cava with normal inspiratory collapse. Pericardium:There is no pericardial effusion. General comments:Large pleural effusion present. CONCLUSIONS 1. Overall left ventricular systolic function is normal with, an EF between 60 - 65 %. 2. The diastolic filling pattern is normal for the age of the patient. 3. There is trace mitral regurgitation. 4. Trace tricuspid regurgitation present. Electronically Signed By: Anand Kamara MD -- Electronically Signed On: 17:01:31
[2016-11-21] MEDS: LATANOPROST 0.005% OPHTH SOLN 2.5 ML OU SCH (22:11)
[2016-11-21] MEDS: Levofloxacin 750 mg/150 ml D5W 750 MG/150 ML RTU IV SCH (22:14)
[2016-11-22] MEDS: LORAZEPAM 0.5 MG TAB PO PRN ×3 (00:34→22:34)
[2016-11-22] MEDS: TEMAZEPAM 15 MG CAP PO PRN (01:22)
[2016-11-22] MEDS: ALBUTEROL 0.083% 3 ML NEB NEB SCH ×4 (03:07→19:56)
[2016-11-22] MEDS: NS/KCl 20 mEq 1,000 ML IV SCH (06:04)
[2016-11-22] MEDS: BENZTROPINE MESYLATE 1 MG TAB PO SCH ×3 (06:05→21:33)
[2016-11-22] MEDS: PANTOPRAZOLE 40 MG TAB PO SCH (06:06)
[2016-11-22] MEDS: ARTIFICIAL TEARS OPH SOLN 15 ML OU SCH ×4 (09:45→21:32)
[2016-11-22] MEDS: LAC HYDRIN 12% TOP SCH ×2 (09:45→21:34)
[2016-11-22] MEDS: LEVOTHYROXINE 25 MCG (0.025 MG) TAB PO SCH (09:46)
[2016-11-22] MEDS: OLANZAPINE 5 MG TAB PO SCH ×2 (09:46→21:35)
[2016-11-22] MEDS: ACETAMINOPHEN 325 MG/TAB TABLET PO SCH ×2 (09:46→21:32)
--- NOTE | 2016-11-22 12:57 | GENMEDPROG ---
Chief Complaint: Clinically doing better. Still moderate anxiety. Able to wean off oxygen. Ambulating in the halls. Notes Reviewed: Yes Events from last night noted and discussed with Clinical Staff Current Medication List: Reviewed Currently: Reports: Cough, Wheezing, KAM, SOB. Denies: Nausea and Vomiting, Abdominal Pain, Chest Pain - Physical Examination Vital Signs and I&O: Last Vital Signs Temp 98.4 F 11/22/16 06:00 Pulse 73 11/22/16 08:20 Resp 16 11/22/16 08:20 BP 121/71 11/22/16 06:00 Pulse Ox 100 11/22/16 08:20 Oxygen Pulse Oxygen Saturation 100 O2 Device Nasal Cannula Oxygen Flow Rate 2 Fraction of Inspired Oxygen ( FIO2) Intake & Output 11/19/16 11/20/16 11/21/16 11/22/16 23:59 23:59 23:59 23:59 Intake Total 1300 1995 440 Output Total 400 301 Balance 900 1694 440 Patient's weight 85.389 kg General: Alert, Oriented x3, Cooperative, Moderate distress. negative: Well appearing (Acutely ill-appearing) HEENT: Normal, PERRLA, EOMI, Anicteric Sclera Neck: Non-tender, Full range of motion, Normal Trachea alignment, Normal inspection. negative: JVD Lymphatics: Normal (no adenopathy). negative: Adenopathy Respiratory: Diminished, Rales, Rhonchi, Tachypnea Cardiovascular: Regular rate and rhythm, No Gallops,Rubs/Murmurs GI: Normal bowel sounds, Soft, Non tender, No hepatospenomegaly, No masses Extremities/Musculoskeletal: Normal pulses. negative: Tenderness, Swelling, Edema Skin: Warm,Dry and Intact, No rashes, No breakdown, No significant lesion Neurological: Normal Steady Gait, Normal speech, Strength at 5/5 X4 ext, Normal tone, Cranial nerves 3-12 NL Psych/Mental Status: Appropriate, Normal Affect, Cooperative - Assessment (1) Bacterial pneumonia Acute J15.9 - UNSPECIFIED BACTERIAL PNEUMONIA Comment/Plan: Steadily better. Oxygenation better. Wean to off. Increase activity. Records from bronchoscopy done in [place] in early August have been reviewed. This showed small pulmonary abscess (2) Cellulitis Acute L03.90 - CELLULITIS, UNSPECIFIED Qualifiers: Site of cellulitis: extremity Site of cellulitis of extremity: lower extremity Laterality: right Qualified Code(s): L03.115 - Cellulitis of right lower limb Comment/Plan: Very mild. Continue antibiotics and supportive care. (3) Anxiety Acute F41.9 - ANXIETY DISORDER, UNSPECIFIED Comment/Plan: Significant restlessness, anxiety and agitation. Continue p.r.n. Ativan. (4) Dysphagia Chronic R13.10 - DYSPHAGIA, UNSPECIFIED Qualifiers: Dysphagia type: unspecified Qualified Code(s): R13.10 - Dysphagia, unspecified Comment/Plan: Continue thickened liquids and home regimen. 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 Spoke with his mom yesterday evening. Case Care Discussed with: Patient, Family (Discussed with patient's mother at length), Resource Management, Respiratory Therapy
[2016-11-22] MEDS: CHOLECALCIFEROL 1000 UNITS TAB PO SCH (14:27)
[2016-11-22] MEDS: VITS,MINERALS,IRON TAB PO SCH (14:27)
[2016-11-22] MEDS: ESCITALOPRAM OXALATE 10 MG TAB PO SCH (17:15)
[2016-11-22] MEDS: ENOXAPARIN 40 MG/0.4 ML PFS SQ SCH (19:20)
[2016-11-22] MEDS: LATANOPROST 0.005% OPHTH SOLN 2.5 ML OU SCH (21:35)
[2016-11-22] MEDS: Levofloxacin 750 mg/150 ml D5W 750 MG/150 ML RTU IV SCH (22:34)
[2016-11-23] MEDS: ALBUTEROL 0.083% 3 ML NEB NEB SCH ×4 (01:54→20:11)
[2016-11-23] MEDS: TEMAZEPAM 15 MG CAP PO PRN ×2 (02:16→23:15)
[2016-11-23] MEDS: IBUPROFEN 800 MG TAB PO PRN ×2 (02:16→11:43)
[2016-11-23] MEDS: PANTOPRAZOLE 40 MG TAB PO SCH (06:29)
[2016-11-23] MEDS: BENZTROPINE MESYLATE 1 MG TAB PO SCH ×3 (06:29→23:11)
[2016-11-23 07:29] LABS: AUTOMATED LYMPH 26.9 % (17-44); AUTOMATED MONOCYTE 9.5 % (3-10); AUTOMATED NEUTROPHIL 60.6 % (45-76); MPV 8.3 fL (7.4-10.4)
[2016-11-23 07:36] LABS: BLOOD UREA NITROGEN 10 MG/DL (9-20); CALCIUM 9.1 MG/DL (8.4-10.2); CALCULATED OSMOLALITY 273 MOs/Kg (270-290); CHLORIDE 104 mEq/L (98-107); GLUCOSE 83 MG/DL (70-99); SODIUM LEVEL 143 mEq/L (137-146)
--- NOTE | 2016-11-23 08:07 | DIRPT ---
CLINICAL DATA: 51-year-old male with history of pneumonia. EXAM: PORTABLE CHEST 1 VIEW COMPARISON: Chest x-ray 11/21/2016. FINDINGS: Multifocal interstitial and airspace disease throughout the lungs bilaterally. Trace bilateral pleural effusions. No definite cephalization of the pulmonary vasculature. Heart size does appear borderline enlarged. The patient is rotated to the right on today's exam, resulting in distortion of the mediastinal contours and reduced diagnostic sensitivity and specificity for mediastinal pathology. IMPRESSION: 1. Multifocal interstitial and airspace disease again noted throughout the lungs bilaterally, favored to reflect a multilobar pneumonia. Overall aeration appears very similar to the prior study from 11/21/2016. 2. Trace bilateral pleural effusions. Electronically Signed By: Leonel Allred M.D. On: 11/23/2016 08:05
[2016-11-23] MEDS: ARTIFICIAL TEARS OPH SOLN 15 ML OU SCH ×4 (08:56→23:10)
[2016-11-23] MEDS: LAC HYDRIN 12% TOP SCH ×2 (08:56→23:13)
[2016-11-23] MEDS: LEVOTHYROXINE 25 MCG (0.025 MG) TAB PO SCH (08:58)
[2016-11-23] MEDS: OLANZAPINE 5 MG TAB PO SCH ×2 (08:58→23:14)
[2016-11-23] MEDS: ACETAMINOPHEN 325 MG/TAB TABLET PO SCH ×2 (08:58→23:13)
[2016-11-23] MEDS: VITS,MINERALS,IRON TAB PO SCH (11:44)
[2016-11-23] MEDS: CHOLECALCIFEROL 1000 UNITS TAB PO SCH (11:44)
[2016-11-23] MEDS: LORAZEPAM 0.5 MG TAB PO PRN (13:29)
[2016-11-23] MEDS: ACETAMINOPHEN 325 MG/TAB TABLET PO PRN (13:30)
--- NOTE | 2016-11-23 14:02 | GENMEDPROG ---
Chief Complaint: Doing well and requests discharge home. Discussed with mother who requests that we do a swallowing evaluation Notes Reviewed: Yes Events from last night noted and discussed with Clinical Staff Current Medication List: Reviewed Currently: Reports: Cough, Wheezing, KAM, SOB. Denies: Nausea and Vomiting, Abdominal Pain, Chest Pain - Physical Examination Vital Signs and I&O: Last Vital Signs Temp 98.3 F 11/23/16 06:02 Pulse 98 11/23/16 06:02 Resp 16 11/23/16 06:02 BP 142/67 11/23/16 06:02 Pulse Ox 99 11/23/16 08:38 Oxygen Pulse Oxygen Saturation 99 O2 Device Room Air Oxygen Flow Rate 2 Fraction of Inspired Oxygen ( FIO2) Intake & Output 11/20/16 11/21/16 11/22/16 11/23/16 23:59 23:59 23:59 23:59 Intake Total 1300 1995 640 200 Output Total 400 301 Balance 900 1694 640 200 Patient's weight 85.389 kg 85.82 kg General: Alert, Oriented x3, Cooperative, Moderate distress. negative: Well appearing (Acutely ill-appearing) HEENT: Normal, PERRLA, EOMI, Anicteric Sclera Neck: Non-tender, Full range of motion, Normal Trachea alignment, Normal inspection. negative: JVD Lymphatics: Normal (no adenopathy). negative: Adenopathy Respiratory: Diminished, Rales, Rhonchi, Tachypnea Cardiovascular: Regular rate and rhythm, No Gallops,Rubs/Murmurs GI: Normal bowel sounds, Soft, Non tender, No hepatospenomegaly, No masses Extremities/Musculoskeletal: Normal pulses. negative: Tenderness, Swelling, Edema Skin: Warm,Dry and Intact, No rashes, No breakdown, No significant lesion Neurological: Normal Steady Gait, Normal speech, Strength at 5/5 X4 ext, Normal tone, Cranial nerves 3-12 NL Psych/Mental Status: Appropriate, Normal Affect, Cooperative Lab/DI/Studies Reviewed: Laboratory Results - last 24 hr 11/23/16 11/23/16 06:15 06:15 WBC 7.8 RBC 3.25 L Hgb 10.0 L Hct 29.2 L MCV 90 MCH 30.6 MCHC 34.1 RDW 16.0 H Plt Count 256 MPV 8.3 Neut % (Auto) 60.6 Lymph % (Auto) 26.9 [place] % (Auto) 9.5 Eos % (Auto) 2.0 Baso % (Auto) 1.0 Absolute Neuts (auto) 4.68 Absolute Lymphs (auto) 2.03 Sodium 143 Potassium 4.1 Chloride 104 Carbon Dioxide 29 Anion Gap 14 BUN 10 Creatinine 0.70 Estimated GFR (MDRD) > 60 Glucose 83 Calculated Osmolality 273 Calcium 9.1 - Assessment (1) Bacterial pneumonia Acute J15.9 - UNSPECIFIED BACTERIAL PNEUMONIA Comment/Plan: Feeling better and requests discharge home. Ambulating on room air. Still some cough and x- ray shows persistent mild infiltrate. Discussed with mother. She is concerned about possibility of aspiration so will go ahead and have speech therapy evaluate. Likely back to [facility] in 1-2 days (2) Cellulitis Acute L03.90 - CELLULITIS, UNSPECIFIED Qualifiers: Site of cellulitis: extremity Site of cellulitis of extremity: lower extremity Laterality: right Qualified Code(s): L03.115 - Cellulitis of right lower limb Comment/Plan: Resolved. Much better with no tenderness. (3) Anxiety Acute F41.9 - ANXIETY DISORDER, UNSPECIFIED Comment/Plan: Significantly better the last couple of days. (4) Dysphagia Chronic R13.10 - DYSPHAGIA, UNSPECIFIED Qualifiers: Dysphagia type: unspecified Qualified Code(s): R13.10 - Dysphagia, unspecified Comment/Plan: Continue thickened liquids and home regimen. 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 Case Care Discussed with: Patient, Family, Nursing Staff, Physical Therapy, Resource Management, Respiratory Therapy, Employment Officer
[2016-11-23] MEDS: ESCITALOPRAM OXALATE 10 MG TAB PO SCH (17:49)
[2016-11-23] MEDS: ENOXAPARIN 40 MG/0.4 ML PFS SQ SCH (17:49)
[2016-11-23] MEDS: LATANOPROST 0.005% OPHTH SOLN 2.5 ML OU SCH (23:13)
[2016-11-23] MEDS: Levofloxacin 750 mg/150 ml D5W 750 MG/150 ML RTU IV SCH (23:14)
[2016-11-24] MEDS: ALBUTEROL 0.083% 3 ML NEB NEB SCH ×3 (01:50→13:23)
[2016-11-24] MEDS: LORAZEPAM 0.5 MG TAB PO PRN (03:36)
[2016-11-24 06:22] VITALS: BMI 37.0
[2016-11-24] MEDS: BENZTROPINE MESYLATE 1 MG TAB PO SCH ×2 (07:17→14:14)
[2016-11-24] MEDS: PANTOPRAZOLE 40 MG TAB PO SCH (07:18)
[2016-11-24] MEDS: LAC HYDRIN 12% TOP SCH (08:51)
[2016-11-24] MEDS: ACETAMINOPHEN 325 MG/TAB TABLET PO SCH (08:52)
[2016-11-24] MEDS: ARTIFICIAL TEARS OPH SOLN 15 ML OU SCH ×2 (08:52→13:38)
[2016-11-24] MEDS: LEVOTHYROXINE 25 MCG (0.025 MG) TAB PO SCH (08:52)
[2016-11-24] MEDS: OLANZAPINE 5 MG TAB PO SCH (08:52)
[2016-11-24] MEDS: IBUPROFEN 800 MG TAB PO PRN (10:33)
[2016-11-24] MEDS: CHOLECALCIFEROL 1000 UNITS TAB PO SCH (13:38)
[2016-11-24] MEDS: VITS,MINERALS,IRON TAB PO SCH (13:38)
[2016-11-24] MEDS ORDERED: VARIBAR THIN 40% BARIUM 250 ML ONE (13:45)
[2016-11-24 15:02] VITALS: BP 113/60; PULSE 80; TEMP 96.9
--- NOTE | 2016-11-24 15:14 | PCM.DCS92 ---
- Final/Secondary Discharge Diagnosis (1) Bacterial pneumonia Acute J15.9 - UNSPECIFIED BACTERIAL PNEUMONIA Present on Admission: Yes Comment: Continues to do well. Ambulating in the halls on room air. Modified bearing swallows shows no evidence of aspiration. X-rays have shown persistent infiltrates but white count is normal, he is afebrile, denies shortness of breath, and is ambulating on room air. Will have him follow-up with Pulmonary as an outpatient to continue to monitor. (2) Cellulitis Acute L03.90 - CELLULITIS, UNSPECIFIED extremity lower extremity right L03.115 - Cellulitis of right lower limb Comment: Resolved. Much better with no tenderness. (3) Anxiety Acute F41.9 - ANXIETY DISORDER, UNSPECIFIED Present on Admission: Yes Comment: Significantly better the last couple of days. (4) Dysphagia Chronic R13.10 - DYSPHAGIA, UNSPECIFIED Present on Admission: Yes unspecified R13.10 - Dysphagia, unspecified Comment: Continue thickened liquids and home regimen. 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 Discharge Disposition: [facility] Facility Discharge Condition: Improved Cognitive Discharge Status: Cognitive deficits prevent decision making for safety. Fuctional Discharge Status: Independent Physician Follow up/Referrals: Leland Aceves MD [Primary Care Provider] - 3-4 Days Tacos Dueñas MD [Staff Physician] - 1-2 weeks New Prescriptions: Albuterol Sulfate [Ventolin] 3 ml NEB Q6H PRN #120 nebu PRN Reason: Wheezing Levofloxacin [Levaquin] 750 mg PO DAILY #5 tablet Discharge Home Medication List Acetaminophen [Mapap] 650 mg PO BID 11/16/16 [History Confirmed 11/19/16 Last Taken 11/19/16] Benztropine Mesylate 0.5 mg PO TID 11/16/16 [History Confirmed 11/19/16 Last Taken 11/19/16] Cholecalciferol (Vitamin D3) [Vitamin D3] 1,000 unit PO DAILY 11/16/16 [History Confirmed 11/19/16 Last Taken 11/19/16] Escitalopram Oxalate [Lexapro] 10 mg PO .QPM 11/16/16 [History Confirmed Last Taken 11/18/16] Hypromellose [Artificial Tears] 1 drop OU QID 11/16/16 [History Confirmed Last Taken 11/19/16] Ibuprofen Tablet [Motrin] 800 mg PO Q8H PRN 11/16/16 [History Confirmed Last Taken 11/17/16] Latanoprost 1 drop OU QHS 11/16/16 [History Confirmed 11/19/16 Last Taken ] Levothyroxine [Synthroid, Levoxyl] 25 mcg PO DAILY 11/16/16 [History Confirmed 11/19/16 Last Taken 11/19/16] Lorazepam [Ativan] 0.5 mg PO Q8H PRN 11/16/16 [History Confirmed 11/19/16 Last Taken 11/13/16] Multivits,Ca,Minerals/Iron/FA [Thera-Tabs M Caplet] 1 tab PO DAILY 11/16/16 [ History Confirmed 11/19/16 Last Taken 11/18/16] Olanzapine [Zyprexa] 5 mg PO BID 11/16/16 [History Confirmed 11/19/16 Last Taken 11/19/16] Pantoprazole Sodium [Protonix] 40 mg PO DAILY 11/16/16 [History Confirmed Last Taken 11/19/16] Sodium Fluoride [Phos-Flur] 15 ml MM DAILY 11/16/16 [History Confirmed 11/19/16 Last Taken 11/19/16] Albuterol Sulfate MDI [Proventil HFA] 2 puff PO Q4H PRN 11/19/16 [History Confirmed 11/19/16 Last Taken 11/19/16] Ammonium Lactate [Lac-Hydrin] 2 gm TOP BID 11/19/16 [History Confirmed 11/19/16 Last Taken 11/16/16] Biotene Toothpaste 1 applic PO BID 11/19/16 [History Confirmed 11/19/16 Last Taken Unknown] Albuterol Sulfate [Ventolin] 3 ml NEB Q6H PRN #120 nebu 11/24/16 [Rx Last Taken Unknown] Levofloxacin [Levaquin] 750 mg PO DAILY #5 tablet 11/24/16 [Rx Last Taken Unknown] O2 Device: Room Air Additional Instructions: home nebulizer Diet Order: Regular solids and thin liquids. No longer needs thickener Diet at Discharge: Regular Activity: As Tolerated Call Office For: Worsening Symptoms - DC Summary Notes Hospital Course Note:: Discharge summary on patient named STELLA MORFIN admitted to [facility] on 11/19/16 by Nael Fan MD. Date of discharge is []. is a 51-year-old white male with a history of mild mental retardation, anxiety disorder, and OCD who presents to the hospital with pneumonia. He apparently had pneumonia several months ago. Initially he was thought to have a lung mass. He underwent bronchoscopy in early August in [place] with multiple biopsies done all of which revealed infectious and inflammatory etiologies. He presented to our hospital with increasing shortness of breath, increasing cough and congestion and worsening anxiety. He was admitted to the hospital and started on IV antibiotics. Initially he required oxygen however we have been able to wean this off. He has been up ambulating in the halls on room air over the last couple of days. X-rays have showed persistent infiltrates but clinically he has felt and looked significantly better. He is afebrile and has a normal white blood cell count. We did have speech therapy see him and he underwent a modified barium swallow. This showed no evidence of aspiration and he is cleared to eat regular solids and thin liquids. Anxiety has been an issue but has improved as his clinical status has improved. He does require constant reassurance that he is okay. We have maintain regular contact with his mother Desi Klein who lives in [place] and she has been following along during his stay. Given the recurrent nature of his pneumonia I have recommended that he continue to follow with Pulmonary. I have discussed his case with Dr. Dueñas who will follow him as an outpatient. Total Time: 1 hour - Physical Exam Vital Signs: Last Vital Signs Temp 96.9 F L 11/24/16 14:20 Pulse 80 11/24/16 14:20 Resp 18 11/24/16 14:20 BP 113/60 11/24/16 14:20 Pulse Ox 96 11/24/16 14:20 Oxygen Pulse Oxygen Saturation 96 O2 Device Room Air Oxygen Flow Rate 2 Fraction of Inspired Oxygen ( FIO2) Constitutional: No apparent distress, Alert (Awake), Well nourished, Well appearing Oriented to: Time, Person, Place - HEENT Head: Normal ( normocephalic) Eye: Normal (PERRL, EOMI, Sclera white) Oropharynx: Normal (Pharynx:Moist without exudate,Gums-no swelling) Nose: No Symptoms Reported (septum midline) - Respiratory/Cardiovascular Respiratory: Diminished Cardiovascular: Normal - GI Auscultation: Normal (NABS) Palpation: Normal (Soft,No rebound or guarding, non distended) Tenderness: Non tender Merino's Sign: Negative - Musculoskeletal Back: Normal (Non-Tender) Extremities: Normal (Normal tone, Pulses 2+ No cyanosis or edema, FROM) - Integumentary Skin: Warm, Dry Lymphatics: Normal (no adenopathy). negative: Adenopathy - Neurologic Memory Impaired: Normal Motor Function: Normal Cranial Nerve: Normal Cerebellar: Normal Mood Description: Normal Thought: Coherent Perception: Normal
[2016-11-24] MEDS: ACETAMINOPHEN 325 MG/TAB TABLET PO PRN (15:32)
== END 2016-11-24 16:34 | DRG 194 ==
LOC: ED 16:28 → EDINP 22:54 → PCU 11-20 10:27 → MPS3 11-21 19:04
PROVIDERS: ADMIT Internal Medicine; ATTEND Hospitalist
PROC: 039B3ZZ Drainage of Right Radial Artery, Percutaneous Approach (ICD-10-PCS; principal; 2016-11-19)
DX: J15.9 Unspecified bacterial pneumonia (principal); L03.115 Cellulitis of right lower limb; J90 Pleural effusion, not elsewhere classified; R13.10 Dysphagia, unspecified; R09.02 Hypoxemia; F41.9 Anxiety disorder, unspecified; D43.4 Neoplasm of uncertain behavior of spinal cord; Z79.899 Other long term (current) drug therapy; F70 Mild intellectual disabilities
CPT/HCPCS: 36415; 36600; 71010; 71020; 80048; 80053; 82803; 83880; 84484; 85025; 85027; 87040; 87086; 93005; 93306; 94640; 96365; 96366; 96372; 98960; 99285; J1650; J1956; J3490; J7040

== ENCOUNTER 2016-12-03 17:17 | Emergency (ER) | payer MEDICARE, MEDICAID ==
[2016-12-03 18:51] VITALS: TEMP 97.8; BMI 34.2
[2016-12-03 19:44] VITALS: BP 117/53; PULSE 80
--- NOTE | 2016-12-03 20:14 | EDPRACDOC ---
- General Information Chief Complaint: Rib Pain Stated Complaint: BACK PAIN HX OF BACK SURGERY 2 MONTHS AGO Time Seen by Provider: 12/03/16 20:01 Information Source: Patient Mode Of Arrival: Ambulance Home Medications: Home Medications Acetaminophen [Mapap] 650 mg PO BID 11/16/16 Benztropine Mesylate 0.5 mg PO TID 11/16/16 Cholecalciferol (Vitamin D3) [Vitamin D3] 1,000 unit PO DAILY 11/16/16 Escitalopram Oxalate [Lexapro] 10 mg PO .QPM 11/16/16 Hypromellose [Artificial Tears] 1 drop OU QID 11/16/16 Ibuprofen Tablet [Motrin] 800 mg PO Q8H PRN 11/16/16 Latanoprost 1 drop OU QHS 11/16/16 Levothyroxine [Synthroid, Levoxyl] 25 mcg PO DAILY 11/16/16 Lorazepam [Ativan] 0.5 mg PO Q8H PRN 11/16/16 Multivits,Ca,Minerals/Iron/FA [Thera-Tabs M Caplet] 1 tab PO DAILY 11/16/16 Olanzapine [Zyprexa] 5 mg PO BID 11/16/16 Pantoprazole Sodium [Protonix] 40 mg PO DAILY 11/16/16 Sodium Fluoride [Phos-Flur] 15 ml MM DAILY 11/16/16 Albuterol Sulfate MDI [Proventil HFA] 2 puff PO Q4H PRN 11/19/16 Ammonium Lactate [Lac-Hydrin] 2 gm TOP BID 11/19/16 Biotene Toothpaste 1 applic PO BID 11/19/16 Albuterol Sulfate [Ventolin] 3 ml NEB Q6H PRN #120 nebu 11/24/16 Levofloxacin [Levaquin] 750 mg PO DAILY #5 tablet 11/24/16 Allergies/Adverse Reactions: Allergies Allergy/AdvReac Type Severity Reaction Status Date / Time No Known Allergies Allergy Unverified 11/16/16 20:54 - History of Present Illness Onset: TODAY - Treatment Prior to ED Arrival Reported Medications/Treatment [employer] Treatment BLS IV No ED Past Medical History - Patient Medical History Neurological History: Reports: Parkinson's Psychological History: Reports: Schizophrenia. 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, SEE BELOW) Surgical History: Reports: Other (Back surgery 2016) - Family Medical History Reports: Diabetes - Social Medical History Smoking Status: Never smoker Social History: Denies: Substance Use Disorder - Physical Exam Last recorded Vital Signs: Last Vital Signs Temp 97.8 F 12/03/16 18:42 Pulse 80 12/03/16 19:44 Resp 18 12/03/16 19:44 BP 117/53 L 12/03/16 19:44 Pulse Ox 96 12/03/16 19:44 Oxygen Pulse Oxygen Saturation 96 O2 Device Room Air Oxygen Flow Rate Fraction of Inspired Oxygen ( FIO2) Decision Time to Discharge: 20:08 - Departure Disposition: Home Condition: Good Final Diagnosis: Adverse reaction to drug Instructions: Ibuprofen (By mouth) Education/Counseling Given To: Patient Education/Counseling Given Regarding: Diagnosis, Treatment, Follow Up Referrals: Leland Aceves MD [Primary Care Provider] - One Week Additional Instructions: IBUPROFEN NEEDED FOR PAIN.
[2016-12-03] MEDS ORDERED: IBUPROFEN 600 MG TAB PO ONE (20:20)
[2016-12-03] MEDS ORDERED: OXYCODONE HCL 5 MG TABLET PO ONE (20:21)
== END 2016-12-03 20:36 | disposition home or self-care (01) ==
LOC: ED 17:17 → EDMC 20:36
DX: R07.81 Pleurodynia (principal)
CPT/HCPCS: 99283; A9270; J3490